=== PATIENT | male | born 1995 | race Caucasian/White ===

== ENCOUNTER 2018-10-09 20:06 | Emergency (ER) | payer SELFPAY ==
[~2018-10-09] VITALS: Ht 185.4 cm; Wt 149.0 kg
[~2018-10-09 20:06] MED LIST: ALB.5NB20; BEN25 PO; CEPH-443 PO; IBUP800T48 PO; PRED20TA PO; TRAM50TA2 PO
[2018-10-09 20:18] VITALS: BP 141/79; PULSE 103; RESP 20; Ht 185.4 cm; Wt 149.0 kg
== END 2018-10-09 20:35 | disposition left against medical advice (07) ==
LOC: FTE 20:06
DX: Z53.21 Procedure and treatment not carried out due to patient leaving prior to being seen by health care provider (principal)

== ENCOUNTER 2018-11-03 23:40 | Emergency (ER) | payer OTHER ==
[~2018-11-03] VITALS: Ht 185.4 cm; Wt 155.8 kg
[2018-11-03 23:45] VITALS: Ht 185.4 cm; Wt 155.8 kg
--- NOTE | 2018-11-04 00:45 | ERD ---
ER Documentation Chief Complaint Chief Complaint CWP w/ difficulty breathing and palpitations for months, worse today HPI This is a 23-year-old gentleman who presents to the emergency room with palpitations and difficulty breathing for several months. He states that he only gets these episodes when he eats chips, salty food or fried fatty foods. He states that approximately 10 minutes after eating these he starts to get a sensation in his chest of fluttering and feels like he cannot breathe. This is been alleviated by Pepto-Bismol and other acid reducing medications in the past. He denies any exertional symptoms, no pleuritic pain, no near syncope. He denies any fevers or chills. No symptoms currently. ROS All systems reviewed and are negative except as per history of present illness. Medications Home Meds Active Scripts Omeprazole* (Omeprazole*) 20 Mg Capsule.dr, 20 MG PO DAILY, #30 Prov:JOHN HANEY MD 11/04/18 Prednisone* (Prednisone*) 20 Mg Tab, 40 MG PO DAILY for 4 Days, TAB Prov:BRANDON JANG MD 03/31/15 Cephalexin* (Keflex*) 500 Mg Capsule, 500 MG PO QID for 7 Days, CAP Prov:BRANDON JANG MD 03/31/15 Diphenhydramine Hcl* (Benadryl*) 25 Mg Cap, 25 MG PO Q6H PRN for ITCHING, #14 CAP Prov:BRANDON JANG MD 03/31/15 Tramadol HCl (Tramadol HCl) 50 Mg Tab, 50 MG PO Q4 PRN for PAIN, #20 TAB Prov:BRANDON JANG MD 12/28/14 Ibuprofen* (Motrin*) 800 Mg Tab, 800 MG PO Q6, #20 TAB Prov:BRANDON JANG MD 12/28/14 Reported Medications Albuterol Sulfate* (Albuterol Sulfate* Neb) 20 Ml Nebu, 0 Refills 06/19/10 Allergies Allergies: Coded Allergies: No Known Allergies (Verified Allergy, Mild, 03/31/15) PMhx/Soc History of Surgery: No Anesthesia Reaction: No Hx Neurological Disorder: No Hx Respiratory Disorders: Yes (ASTHMA) Hx Cardiac Disorders: No Hx Psychiatric Problems: No Hx Miscellaneous Medical Probl: No Hx Alcohol Use: No Hx Substance Use: No Hx Tobacco Use: No Smoking Status: Never smoker FmHx Family History: diabetes, coronary disease Physical Exam Vitals Vital Signs Date Temp Pulse Resp B/P (MAP) Pulse Ox O2 O2 Flow FiO2 Time Delivery Rate 11/04/18 97.4 71 20 150/88 100 Room Air 00:03 (108) 11/03/18 97.4 85 20 154/77 100 23:45 (102) Physical Exam General: Well developed, well nourished, no acute distress Head: Normocephalic, atraumatic. Eyes: Pupils equally reactive, EOM intact ENT: Moist mucous membranes Neck: Supple, no lymphadenopathy Respiratory: Lungs clear bilaterally, no distress Cardiovascular: RRR, no murmurs, rubs, or gallops Abdominal: Soft, non-tender, non-distended, no peritoneal signs : Deferred MSK: No edema, no unilateral swelling, 5/5 strength Neurologic: Alert and oriented, moving all extremities, normal speech, no focal weakness, no cerebellar signs Skin: No rash Psych: Normal mood Result Diagram: 11/04/18 0028 11/04/18 0028 Results 24 hrs Laboratory Tests Test 11/04/18 00:28 White Blood Count 7.7 10^3/ul Red Blood Count 4.96 10^6/ul Hemoglobin 14.6 g/dl Hematocrit 45.5 % Mean Corpuscular Volume 91.7 fl Mean Corpuscular Hemoglobin 29.4 pg Mean Corpuscular Hemoglobin Concent 32.1 g/dl Red Cell Distribution Width 12.6 % Platelet Count 219 10^3/UL Mean Platelet Volume 9.7 fl Immature Granulocytes % 0.400 % Neutrophils % 63.5 % Lymphocytes % 24.5 % Monocytes % 10.2 % Eosinophils % 1.0 % Basophils % 0.4 % Nucleated Red Blood Cells % 0.0 /100WBC Immature Granulocytes # 0.030 10^3/ul Neutrophils # 4.9 10^3/ul Lymphocytes # 1.9 10^3/ul Monocytes # 0.8 10^3/ul Eosinophils # 0.1 10^3/ul Basophils # 0.0 10^3/ul Nucleated Red Blood Cells # 0.0 10^3/ul Sodium Level 145 mmol/L Potassium Level 4.4 mmol/L Chloride Level 106 mmol/L Carbon Dioxide Level 27 mmol/L Anion Gap 12 Blood Urea Nitrogen 14 mg/dl Creatinine 0.87 mg/dl Est Glomerular Filtrat Rate mL/min > 60 mL/min Glucose Level 98 mg/dl Calcium Level 9.5 mg/dl Troponin I < 0.012 ng/ml Procedures/MDM EKG, MONITORS, & DIAGNOSTIC IMAGING: EKG: I reviewed and interpreted a 12-lead EKG. Rhythm: Normal sinus rhythm ST Changes: No contiguous ST segment elevations T waves: No contiguous T wave inversions Impression: No evidence of acute cardiac ischemia Chest x-ray: I reviewed and interpreted a 1 view of the chest Mediastinum: No enlargement Cardiac silhouette: No cardiomegaly Airspace: Clear lung fagan bilaterally without evidence of pneumothorax Bones: No evidence of fracture PROCEDURES: None LAB INTERPRETATION: * Negative troponin MEDICAL DECISION MAKING: The patient's history, physical exam and clinical presentation is very consistent with postprandial symptoms likely consistent with dyspepsia. The patient does not have exertional symptoms and does not have significant risk factors for early cardiac disease. His family does have some risk factors including hypertension hyperlipidemia and diabetes but no early cardiac disease process. Based on the patient's clinical exam and history and risk factors, I have a much lower clinical concern for pulmonary embolism, acute aortic dissection, pn eumothorax, pneumonia, cardiac tamponade HEART Score: 0 MACE Rate: Less than 1.7% Shared Decision Making: We had a conversation regarding risk stratification, MACE rate, and the risks, benefits, alternatives of disposition planning options. Disposition planning: We will troponin with discharge ER COURSE: * Patient remains asymptomatic. Laboratory testing is unremarkable. CONSULTATION: None DISPOSITION PLAN: The patient does not have an identifiable emergent medical condition that warrants inpatient hospitalization at this time. The patient is deemed safe for discharge with outpatient follow-up. We discussed follow up with the patient's primary care doctor within 24 to 48 hours as needed. We also discussed return to the emergency room for worsening symptoms or worsening condition. Outpatient referral: None required Discharge Medications: Prilosec Departure Diagnosis: Primary Impression: Dyspepsia Condition: Stable JOHN HANEY MD Nov 04, 2018 00:45
[2018-11-04] MEDS ORDERED: OMEP20CA16 PO (01:42)
[2018-11-04 01:51] VITALS: BP 132/86; PULSE 70; RESP 20
== END 2018-11-04 01:52 | disposition home or self-care (01) ==
LOC: E/R 23:40
DX: R10.13 Epigastric pain (principal); J45.909 Unspecified asthma, uncomplicated
CPT/HCPCS: 36415; 71045; 80048; 84484; 85025; 93005; Z7502

== ENCOUNTER 2018-11-07 05:13 | Emergency (ER) | payer OTHER ==
[~2018-11-07] VITALS: Ht 185.4 cm; Wt 156.6 kg
[~2018-11-07 05:13] MED LIST changes: +OMEP20CA16 PO
[2018-11-07 05:21] VITALS: BP 141/73; PULSE 71; RESP 18; Ht 185.4 cm; Wt 156.6 kg
--- NOTE | 2018-11-07 06:08 | ERD ---
ER Documentation Chief Complaint Chief Complaint palpitations x 10 months, was here few days ago for same. HPI 23-year-old male presents with complaint of palpitations on and off x10 months. Patient states palpitations occur only after eating and are commonly resolved with use of Pepto-Bismol or [place]. Patient recently presented to ED to 3 days previously for similar complaints, labs, imaging, EKG unremarkable for cardiac etiology and patient diagnosed with dyspepsia. Patient states he has followed up with his PCP 2 days [facility] and was told to have both anxiety and gastritis. Pt notes follow-up with psychiatrist later this afternoon to discuss his anxiety but presents to ED today to requesting EKG to "make sure everything is ok." Pt currently asymptomatic, denies current SOB, palpitations, chest pain, or dizziness. Patient denies any chronic medical conditions, history of heart disease, family history of early heart attack, family history of sudden . Patient is a non-smoker. ROS All systems reviewed and are negative except as per history of present illness. Medications Home Meds Active Scripts Omeprazole* (Omeprazole*) 20 Mg Capsule.dr, 20 MG PO DAILY, #30 Prov:JOHN HANEY MD 11/04/18 Prednisone* (Prednisone*) 20 Mg Tab, 40 MG PO DAILY for 4 Days, TAB Prov:BRANDON JANG MD 03/31/15 Cephalexin* (Keflex*) 500 Mg Capsule, 500 MG PO QID for 7 Days, CAP Prov:BRANDON JAGN MD 03/31/15 Diphenhydramine Hcl* (Benadryl*) 25 Mg Cap, 25 MG PO Q6H PRN for ITCHING, #14 CAP Prov:BRANDON JANG MD 03/31/15 Tramadol HCl (Tramadol HCl) 50 Mg Tab, 50 MG PO Q4 PRN for PAIN, #20 TAB Prov:BRANDON JANG MD 12/28/14 Ibuprofen* (Motrin*) 800 Mg Tab, 800 MG PO Q6, #20 TAB Prov:BRANDON JANG MD 12/28/14 Reported Medications Albuterol Sulfate* (Albuterol Sulfate* Neb) 20 Ml Nebu, 0 Refills 06/19/10 Allergies Allergies: Coded Allergies: No Known Allergies (Verified Allergy, Mild, 03/31/15) PMhx/Soc Medical and Surgical Hx: pt denies Surgical Hx History of Surgery: No Anesthesia Reaction: No Hx Neurological Disorder: No Hx Respiratory Disorders: Yes (ASTHMA) Hx Cardiac Disorders: No Hx Psychiatric Problems: No Hx Miscellaneous Medical Probl: No Hx Alcohol Use: No Hx Substance Use: No Hx Tobacco Use: No Smoking Status: Never smoker FmHx Family History: No diabetes, No coronary disease, No other Physical Exam Vitals Vital Signs Date Temp Pulse Resp B/P (MAP) Pulse Ox O2 O2 Flow FiO2 Time Delivery Rate 11/07/18 97.4 71 18 141/73 100 05:21 (95) Physical Exam Gen: Well developed. Well nourished. No acute distress Head/Eyes: Atraumatic. Normocephalic. PERRL. EOMI ENT: Moist mucous membranes. Voice normal. Neck: Supple. No lymphadenopathy Cardiovascular: Regular rate and rhythm. No murmurs, rubs, or gallops. Distal pulses intact Respiratory: No respiratory distress. Normal breath sounds. No wheezes, rales, or rhonchi. Abdominal: Soft. Non-tender. No guarding, rebound, or rigidity. Non-distended. Extremities: No edema, Full ROM Skin: Dry. No rashes. Warm Neurological: Alert and oriented X 3. Normal speech Psychiatric: Normal mood. Normal affect Results 24 hrs EKG: Reviewed by Dr. Robert Alfred Rate/Rhythm: Normal Sinus Rhythm with sinus arrhythmia QRS, ST, T-waves: No changes consistent w/ acute ischemia Impression: No evidence of ischemia or arrhythmia Procedures/MDM MDM: 23 yo M pt presents with complaint of palpitations and anxiety. VS noted. Patient is well-appearing / non-toxic. History, exam and previous lab findings were reviewed and are stable. Low suspicion for ACS, dissection, PE, PTX or pneumonia. Patient was reassured. Patient was observed in ED. Etiology of palpitations unclear however, pt has f/u with both PCP and psychiatry to discuss possible anxiety and gastritis as etiology given resolution with pepto-bismol and rosa elena-selt[place]. Patient will be discharged home and advised to keep scheduled f/u. Patient will be d/c home and is told to return to ED for worsening pain, dyspnea, and other concerns. Departure Diagnosis: Primary Impression: Palpitations Additional Impressions: Anxiety Dyspepsia Condition: Stable Patient Instructions: Your Body's Response to Anxiety, Palpitations XIAO LOPEZ PA-C Nov 07, 2018 06:08
== END 2018-11-07 06:48 | disposition home or self-care (01) ==
LOC: FTE 05:13
DX: R00.2 Palpitations (principal); F41.9 Anxiety disorder, unspecified; R10.13 Epigastric pain; J45.909 Unspecified asthma, uncomplicated
CPT/HCPCS: 93005